=== PATIENT | female | born 1970 | race Caucasian/White ===

== ENCOUNTER 2016-07-03 13:32 | Inpatient (IN) | payer BC ==
--- NOTE | ~2016-07-03 | DS ---
Discharge Summary [id number] [place]. [address] NAME: LEANN VARELA : 68 STATUS : DIS IN PAT#: [id number] AGE: 45 ADM/REG DATE : 07/03/16 MR#: [id number] REPORT SERV DATE: 07/07/16 DICTATED BY: Raman TEJEDA DATE: 07/06/16 REPORT STATUS : Draft TRANSCRIBED BY: MODL DATE: 07/06/16 ADMISSION DATE: 07/03/2016 DISCHARGE DATE: 07/06/2016 ADMISSION DIAGNOSIS: Left distal ureteral stone with urinary tract infection. DISCHARGE DIAGNOSIS: Left distal ureteral stone with urinary tract infection. PROCEDURES DURING ADMISSION: 07/03/2016, cysto, left retrograde double-J stent placement by Dr. Coe. COMPLICATIONS: None. BRIEF HISTORY: Ms. Varela is a 45-year-old white female with a history of recurrent stone disease, came to the ER on 07/03/2016 with fever, pain, and ureteral obstruction due to stone. She had a stent placed urgently and cultures were obtained. HOSPITAL COURSE AND TREATMENT: The patient was admitted. She still had fever overnight, felt poorly on 07/04/2016. Her white count was 16,000. I saw her for the first time on 07/05/2016. She was feeling poorly. T-max 99. White count decreased to 15.4, creatinine was 0.8. Urine culture was growing greater than 100 colonies of gram-positive cocci, and I switched her from Rocephin to vancomycin. Blood cultures were no growth at 24 hours. On 07/06/2016, she was feeling marginally better. She was afebrile with good urine output. Her white count was normalized at 9000. Her urine culture was positive for Enterococcus avium, group D, sensitive to vancomycin as well as oral antibiotics including ampicillin and levofloxacin. I decided to discharge Ms. Varela on sensitivity-directed antibiotics with the following instructions. DISCHARGE INSTRUCTIONS: 1. Home today. 2. Amoxicillin 500 mg p.o. t.i.d. x10 days. 3. Percocet 5/325 one to two p.o. q.4 hours p.r.n. pain, #20. 4. Pyridium 200 mg p.o. t.i.d. x5 days, 3 refills. 5. We will schedule delayed ureteroscopy in the next week or two with stent exchange. She has done this before and understands that. ALLI/ALLISON Raman Tejeda M.D. / [id number] CC: Discharge Summary [address] [place]. [address] NAME: LEANN VARELA : 68 STATUS : DIS IN PAT#: [id number] AGE: 45 ADM/REG DATE : 07/03/16 MR#: [id number] REPORT SERV DATE: 07/07/16 DICTATED BY: Raman TEJEDA DATE: 07/06/16 REPORT STATUS : Draft TRANSCRIBED BY: ALLISON DATE: 07/06/16 Rhonda Barron LYDIA B
--- NOTE | ~2016-07-03 | OP ---
Record Of [facility] [address] [place]. [address] NAME: LEANN VARELA : 68 STATUS : ADM Muna PAT#: [id number] AGE: 45 ADM/REG DATE : 07/03/16 MR#: [id number] REPORT SERV DATE: 07/03/16 DICTATED BY: CARLTON KEITA DATE: 07/03/16 REPORT STATUS : Draft TRANSCRIBED BY: MODL DATE: 07/03/16 DATE OF PROCEDURE: 07/03/2016 PREPROCEDURE DIAGNOSES: 1. 4 mm left ureteral calculus. 2. urinary tract infection. 3. Fever. 4. Early sepsis of urinary origin. POSTPROCEDURE DIAGNOSES: 1. 4 mm left ureteral calculus. 2. Urinary tract infection. 3. Fever. 4. Early sepsis of urinary origin. PROCEDURE: Cystoscopy, left retrograde pyelogram, stone manipulation, 6-Maldivian x 26 cm left ureteral stent placement. SURGEON: Carlton Keita M.D. CLINICAL TRIAL EDUCATOR: Sergio. ANESTHESIA: General. ESTIMATED BLOOD LOSS: Trace. FLUIDS: 500 mL crystalloid. COMPLICATION: None. HISTORY: Ms Varela is a 45-year-old, white female, who presented to the emergency department today with an early septic left ureteral calculus. I recommended emergent left ureteral stent decompression. I highlighted the risks, benefits, alternatives, imponderables, expected outcomes, and potential complications inherent to this decision. Risks include, but not limited to bleeding, infection, overwhelming sepsis, ICU stay, need for further urologic procedures, anesthesia complications, and so forth. I highlighted that I would not make an attempt to remove the stone today due to her infected status. I answered all of her questions, I believe, to her satisfaction. Subsequently, she requested the procedure and provided her informed written consent. PROCEDURE IN DETAIL: On 07/03/2016, the patient was brought to the cystoscopy suite. She was placed supine on the cystoscopy table. After the Anesthesia Team connected heart and lung monitors and established general anesthesia, the patient was repositioned in the lithotomy position. All pressure points were carefully padded. Genitalia and perineum were prepped and draped into a sterile field with Hibiclens. A time-out was called. The proper patient and procedure were confirmed. Rocephin was administered in the emergency department Record Of [facility] [address] [place]. [address] NAME: LEANN VARELA : 68 STATUS : ADM Muna PAT#: [id number] AGE: 45 ADM/REG DATE : 07/03/16 MR#: [id number] REPORT SERV DATE: 07/03/16 DICTATED BY: CARLTON KEITA DATE: 07/03/16 REPORT STATUS : Draft TRANSCRIBED BY: MODL DATE: 07/03/16 prior the case. At this time, I gently inserted a 20-Maldivian rigid cystoscope with 30-degree lens in the bladder. Surveillance was performed. There were no stones, masses, or foreign bodies visualized. Ureteral orifices were located bilaterally in normal anatomic location. The left ureteral orifice was intubated with 5-Maldivian Pollack catheter, and a left retrograde pyelogram was performed with a 50:50 mixture of sterile water and Omnipaque. This showed a small filling defect at the level of the left acetabulum consistent with the aforementioned stone. She had a moderate degree of proximal hydroureteronephrosis. I advanced a 0.035 inch guidewire through the Pollack catheter and ended up manipulating the stone somewhat cephalad. The guidewire found its way in the left upper pole. I removed the Pollack catheter. Subsequently, I threaded a 6-Maldivian x 26 cm Percuflex Plus stent over the guidewire. The proximal curl was confirmed in left renal pelvis. The string was cut from the stent. The guidewire was removed. The distal curl was confirmed in the bladder. The stent drained nicely. The bladder was drained. The instruments were removed. The patient was awakened, extubated, and transferred to recovery area in stable condition. There were no complications. RAC/MODL Carlton Keita M.D. / [id number] CC: Rhonda Barron LYDIA B J. Patrick Dilworth, M.D.
--- NOTE | ~2016-07-03 | HP ---
History And Physical [id number] [place]. [address] NAME: LEANN VARELA : 68 STATUS : ADM Muna PAT#: [id number] AGE: 45 ADM/REG DATE : 07/03/16 MR#: [id number] REPORT SERV DATE: 07/03/16 DICTATED BY: CARLTON KEITA DATE: 07/03/16 REPORT STATUS : Draft TRANSCRIBED BY: MODL DATE: 07/03/16 DATE OF ADMISSION: 07/03/2016 REASON FOR ADMISSION: Possible septic left ureteral calculus. HISTORY OF PRESENT ILLNESS: Ms. Varela is a 45-year-old white female with a lengthy past medical history of recurrent nephrolithiasis, who presented to the [facility] Emergency Department today with a 24-hour history of left flank pain radiating into her groin along with nausea, vomiting, shaking, chills, and fever. She had a documented temperature of 100.9 degrees Fahrenheit while at home. In the emergency department, she had a thorough investigation. A CT stone protocol revealed a 4 mm left pelvic ureteral calculus with associated moderate to severe left hydroureteronephrosis. Additionally, she had possible early sepsis with a pulse of 117, temperature of 99 degrees Fahrenheit, a white blood cell count of 16,600, and infected appearing urine. Due to all of this, I recommended an emergent trip to the operating room for left ureteral stent decompression followed by hospital admission for fluid resuscitation, antibiotics, pain control, labs, vitals, etc. PAST MEDICAL HISTORY: Hypertension, kidney stones, depression, anxiety, type 2 diabetes. PAST SURGICAL HISTORY: , laparoscopic cholecystectomy, liver resection for benign disease, lithotripsy, ureteroscopy. SOCIAL HISTORY: , lives with her . Does not smoke, drink, or use illicit drugs. FAMILY HISTORY: Positive for diabetes, coronary artery disease, and hypertension. HOME MEDICATIONS: Xanax, vitamin B12, vitamin D, Prozac, Neurontin, Amaryl, Motrin, Hyzaar, Mobic, Glucophage, Zofran, K-Ember, Requip, Mccreary nasal spray, Ambien. ALLERGIES: DEMEROL. REVIEW OF SYSTEMS: Thorough 13-point review of systems was performed by me and I have noted it to be positive in the history of present illness or past medical history, or negative. PHYSICAL EXAMINATION: GENERAL: Well-appearing white female with complaining of mild pain. VITAL SIGNS: Temperature 99, pulse 117, respiration 14, blood pressure 166/87. HEENT: Normocephalic, atraumatic. Eyes are anicteric. Nares are patent. Oropharynx is clear. NECK: Supple. HEART: Tachycardic. ABDOMEN: Mild left CVA tenderness. No involuntary guarding or rebound. INTEGUMENT: Warm. MUSCULOSKELETAL: Moves all extremities well. [address] And Physical [address] [place] [address] NAME: LEANN VARELA : 68 STATUS : ADM Muna PAT#: [id number] AGE: 45 ADM/REG DATE : 07/03/16 MR#: [id number] REPORT SERV DATE: 07/03/16 DICTATED BY: CARLTON KEITA DATE: 07/03/16 REPORT STATUS : Draft TRANSCRIBED BY: ALLISON DATE: 07/03/16 NEUROLOGIC: No focal deficits. PSYCHIATRIC: Pleasant, appropriate. LABS: White blood cell count 16,600, hematocrit 42.1. Creatinine 0.98. Urinalysis: Large leukocyte esterase, negative nitrite, 39 red blood cells, 47 white blood cells, few bacteria. IMAGING: I personally reviewed her CAT scan, which revealed an obstructing 4 mm left-sided ureteral stone with hydroureteronephrosis. ASSESSMENT: 1. Obstructing left ureteral calculus. 2. Urinary tract infection. 3. Fever. 4. Possible early sepsis of urinary origin. PLAN: I discussed the situation with the patient and her with nursing staff present. I discussed that I believe that she needed an emergent trip to the operating room for left ureteral stent decompression. If I am unable to place a stent, she will need left percutaneous nephrostomy drainage. I highlighted that I would not make an attempt to remove her stone today due to her potentially infected status. After the operating room, plans will be to admit her to the floor for fluid resuscitation, IV pain control, serial labs with vital signs, etc. I will also start her on a sliding scale insulin protocol. I answered all questions I believe to her satisfaction. Subsequently, she requested the plan and provided her informed consent. DIAN/MALAL Carlton Keita M.D. / [id number] CC: Raman Rudd M.D.
[2016-07-03 12:56] LABS: BASOPHILS 0.1 %; BASOPHILS ABSOLUTE 0.02 10/3/uL (0.0-0.16); EOSINOPHILS 0.2 %; EOSINOPHILS ABSOLUTE 0.04 10/3/uL (0.0-0.53); ER CBC TAT 0 Hrs 08 Mins; HEMATOCRIT 42.1 % (36.0-48.0); HEMOGLOBIN 14.9 g/dL (12.0-16.0); IMMATURE GRANULOCYTES 0.4 %; IMMATURE GRANULOCYTES ABSOLUTE 0.06 10/3/uL (0.0-0.11); LYMPHOCYTES 7.5 %; LYMPHOCYTES ABSOLUTE 1.24 10/3/uL (0.67-4.30); MANUAL DIFF NO %; MEAN CORPUS HGB CONC 35.4 g/dL (32.0-36.0); MEAN CORPUSCULAR HEMOGLOB 31.8 pg (26.0-34.0); MEAN CORPUSCULAR VOLUME 89.8 fL (80-100); MONOCYTES 5.4 %; NEUTROPHILS 86.4 %; NEUTROPHILS ABSOLUTE 14.31 10/3/uL (2.02-8.40); PLATELET COUNT 267 10/3/uL (150-400); RBC DISTRIBUTION WIDTH 15.1 % (12.0-16.0); RED CELL COUNT 4.69 10/6/uL (4.0-5.6); WHITE BLOOD CELLS 16.6 10/3/uL (4.5-10.5)
[2016-07-03 13:01] LABS: ASCORBIC ACID (UR NOT ORDER) NEG (NEG); BILIRUBIN, URINE NEGATIVE (NEG); ER URINALYSIS TAT 0 Hrs 13 Mins; KETONE, URINE TRACE MG/DL (NEG); LEUKOCYTE ESTERASE(NOT OR LARGE (NEG); NITRITE (URINE) NEG (NEG); WBC (NOT ORDERED) (RFLEX) 47 (0-5)
[2016-07-03 13:03] LABS: INTERNATIONAL NORMAL RATI 1.1 UNITS (-); PROTIME (NOT ORD) 13.8 SEC (12.0-14.5)
[2016-07-03 13:12] LABS: A/G RATIO 0.8 (0.7-1.9); ALBUMIN 3.6 G/DL (3.5-5.0); ALKALINE PHOSPHATASE 71 U/L (45-117); BUN (BLOOD UREA NITROGEN) 11 MG/DL (6-23); CALCIUM, SERUM 9.3 MG/DL (8.5-10.4); CHLORIDE, SERUM 96 MMOL/L (96-112); CO2 (CARBON DIOXIDE) 27 MMOL/L (24-34); CREATININE 0.98 MG/DL (0.55-1.02); GFR AFRICAN AMERICAN 80 ML/MIN (>=60); GFR NON AFRICAN AMERICAN 69 ML/MIN (>=60); GLOBULIN 4.6 G/DL (2.5-4.1); GLUCOSE, SERUM 180 MG/DL (60-99); POTASSIUM, SERUM 3.3 MMOL/L (3.5-5.3); SGPT(ALT) 22 U/L (5-65); SODIUM, SERUM 137 MMOL/L (135-148); TOTAL BILIRUBIN 0.5 MG/DL (0-1.2); TOTAL PROTEIN 8.2 G/DL (6.0-8.5)
[2016-07-03 13:13] LABS: SGOT(AST) 19 U/L (5-40)
[2016-07-03 13:15] LABS: LACTATE 3.6 MMOL/L (0.3-2.4)
[~2016-07-03 13:32] MED LIST: ACET500CAP PO; AFRIN15 NAS; ALEVE220 MG PO; AMARYL2 PO; AMB10 PO; AMB5 PO; AMOXIL500C PO; AVALIDE1 TA1 PO; BACDS PO; COZ25 PO; EFFEXOR XR150 MG PO; ESTRADIOL 0.1 MG TOP; FIBERCON PO; GLUCPH8 PO; HYZAAR 100/25 T1 TAB PO; I10 PO; KLOR-CON M1010 MEQ PO; KLOR-CON M2020 MEQ PO; LEVAQUIN5T PO; LEVAQUIN750 MG PO; LEXAPRO10 PO; LEXAPRO20 PO; LIPITOR10 PO; MAGOX4 PO; MOTRIN IB200 MG PO; NEUR100 PO; PCET PO; POTASSIUM RX PO; PROBIOTIC; PYR200 PO; QUESTRAN4 GM PO; REQUIP2 PO; VICTOZA18 MG/3 ML SC; VIIBRYD10 MG PO; VIIBRYD20 MG PO; VITAMIN B PO; ZOFRAN ODT4 MG PO
[2016-07-03 13:47] LABS: PROCALCITONIN 0.19 ng/mL (<0.5)
[2016-07-03] MEDS ORDERED: NEUR100 PO (13:50)
[2016-07-03] MEDS ORDERED: REQUIP2 PO (13:50)
[2016-07-03] MEDS ORDERED: PROZAC PO (13:51)
[2016-07-03] MEDS ORDERED: AMARYL2 PO (13:51)
[2016-07-03] MEDS ORDERED: AMB5 PO (13:51)
[2016-07-03] MEDS ORDERED: GLUCPH8 PO (13:52)
[2016-07-03] MEDS ORDERED: HYZAAR 100/25 T1 TAB PO (13:52)
[2016-07-03] MEDS ORDERED: MOBIC15 MG PO (13:52)
[2016-07-03] MEDS ORDERED: KLOR-CON M2020 MEQ PO (13:53)
[2016-07-03] MEDS ORDERED: VITD PO (13:53)
[2016-07-03] MEDS ORDERED: X5 PO (13:54)
[2016-07-03] MEDS ORDERED: ZOFRAN ODT4 MG PO (13:55)
[2016-07-03] MEDS ORDERED: B12100T PO (13:56)
[2016-07-03] MEDS ORDERED: IBU800 PO (13:57)
[2016-07-03] MEDS ORDERED: OCEAN NAS (13:58)
[2016-07-04 06:34] LABS: BUN (BLOOD UREA NITROGEN) 13 MG/DL (6-23); CALCIUM, SERUM 7.3 MG/DL (8.5-10.4); CHLORIDE, SERUM 99 MMOL/L (96-112); CO2 (CARBON DIOXIDE) 26 MMOL/L (24-34); CREATININE 1.08 MG/DL (0.55-1.02); GFR AFRICAN AMERICAN 71 ML/MIN (>=60); GFR NON AFRICAN AMERICAN 62 ML/MIN (>=60); GLUCOSE, SERUM 216 MG/DL (60-99); POTASSIUM, SERUM 3.8 MMOL/L (3.5-5.3); SODIUM, SERUM 136 MMOL/L (135-148)
[2016-07-04 08:28] LABS: BASOPHILS 0.1 %; BASOPHILS ABSOLUTE 0.02 10/3/uL (0.0-0.16); EOSINOPHILS 0.1 %; EOSINOPHILS ABSOLUTE 0.02 10/3/uL (0.0-0.53); HEMATOCRIT 32.2 % (36.0-48.0); HEMOGLOBIN 11.1 g/dL (12.0-16.0); IMMATURE GRANULOCYTES 2.7 %; IMMATURE GRANULOCYTES ABSOLUTE 0.47 10/3/uL (0.0-0.11); LYMPHOCYTES 6.4 %; LYMPHOCYTES ABSOLUTE 1.12 10/3/uL (0.67-4.30); MANUAL DIFF NO %; MEAN CORPUS HGB CONC 34.5 g/dL (32.0-36.0); MEAN CORPUSCULAR HEMOGLOB 31.3 pg (26.0-34.0); MEAN CORPUSCULAR VOLUME 90.7 fL (80-100); MEAN PLATELET VOLUME 8.5 fL (9.2-13.0); MONOCYTES 9.3 %; MONOCYTES ABSOLUTE 1.63 10/3/uL (0.21-1.20); NEUTROPHILS 81.4 %; NEUTROPHILS ABSOLUTE 14.32 10/3/uL (2.02-8.40); PLATELET COUNT 173 10/3/uL (150-400); RBC DISTRIBUTION WIDTH 15.4 % (12.0-16.0); RED CELL COUNT 3.55 10/6/uL (4.0-5.6); WHITE BLOOD CELLS 17.6 10/3/uL (4.5-10.5)
[2016-07-05 06:41] LABS: BASOPHILS 0.1 %; BASOPHILS ABSOLUTE 0.02 10/3/uL (0.0-0.16); EOSINOPHILS 1.2 %; EOSINOPHILS ABSOLUTE 0.19 10/3/uL (0.0-0.53); HEMATOCRIT 33.4 % (36.0-48.0); HEMOGLOBIN 11.3 g/dL (12.0-16.0); IMMATURE GRANULOCYTES 0.6 %; IMMATURE GRANULOCYTES ABSOLUTE 0.09 10/3/uL (0.0-0.11); LYMPHOCYTES 7.6 %; LYMPHOCYTES ABSOLUTE 1.17 10/3/uL (0.67-4.30); MEAN CORPUS HGB CONC 33.8 g/dL (32.0-36.0); MEAN CORPUSCULAR HEMOGLOB 31.5 pg (26.0-34.0); MEAN PLATELET VOLUME 8.8 fL (9.2-13.0); MONOCYTES 7.4 %; MONOCYTES ABSOLUTE 1.14 10/3/uL (0.21-1.20); NEUTROPHILS 83.1 %; NEUTROPHILS ABSOLUTE 12.75 10/3/uL (2.02-8.40); PLATELET COUNT 207 10/3/uL (150-400); RBC DISTRIBUTION WIDTH 15.4 % (12.0-16.0); RED CELL COUNT 3.59 10/6/uL (4.0-5.6); WHITE BLOOD CELLS 15.4 10/3/uL (4.5-10.5)
[2016-07-05 06:44] LABS: MANUAL DIFF NO %
[2016-07-05 06:52] LABS: BUN (BLOOD UREA NITROGEN) 13 MG/DL (6-23); CALCIUM, SERUM 7.6 MG/DL (8.5-10.4); CHLORIDE, SERUM 101 MMOL/L (96-112); CO2 (CARBON DIOXIDE) 24 MMOL/L (24-34); CREATININE 0.82 MG/DL (0.55-1.02); GFR AFRICAN AMERICAN 99 ML/MIN (>=60); GFR NON AFRICAN AMERICAN 86 ML/MIN (>=60); GLUCOSE, SERUM 193 MG/DL (60-99); POTASSIUM, SERUM 3.4 MMOL/L (3.5-5.3); SODIUM, SERUM 137 MMOL/L (135-148)
[2016-07-06 06:56] LABS: BASOPHILS 0.1 %; BASOPHILS ABSOLUTE 0.01 10/3/uL (0.0-0.16); EOSINOPHILS 2.3 %; EOSINOPHILS ABSOLUTE 0.21 10/3/uL (0.0-0.53); HEMATOCRIT 31.1 % (36.0-48.0); HEMOGLOBIN 10.7 g/dL (12.0-16.0); IMMATURE GRANULOCYTES 0.7 %; IMMATURE GRANULOCYTES ABSOLUTE 0.06 10/3/uL (0.0-0.11); LYMPHOCYTES 12.1 %; LYMPHOCYTES ABSOLUTE 1.08 10/3/uL (0.67-4.30); MANUAL DIFF NO %; MEAN CORPUS HGB CONC 34.4 g/dL (32.0-36.0); MEAN CORPUSCULAR HEMOGLOB 31.5 pg (26.0-34.0); MEAN CORPUSCULAR VOLUME 91.5 fL (80-100); MEAN PLATELET VOLUME 8.9 fL (9.2-13.0); MONOCYTES 9.4 %; MONOCYTES ABSOLUTE 0.84 10/3/uL (0.21-1.20); NEUTROPHILS 75.4 %; NEUTROPHILS ABSOLUTE 6.76 10/3/uL (2.02-8.40); PLATELET COUNT 198 10/3/uL (150-400)
[2016-07-06] MEDS ORDERED: AMOXIL500C PO (14:16)
[2016-07-06] MEDS ORDERED: PCET PO (14:17)
[2016-07-06] MEDS ORDERED: PYR200 PO (14:17)
== END 2016-07-06 15:07 | disposition home or self-care (01) | DRG 872 ==
LOC: ER 13:32 → 5SO 18:00
PROVIDERS: Physician Assistant Medical; Urology
PROC: 0T778DZ Dilation of Left Ureter with Intraluminal Device, Via Natural or Artificial Opening Endoscopic (ICD-10-PCS; 2016-07-03)
PROC: BT1F1ZZ Fluoroscopy of Left Kidney, Ureter and Bladder using Low Osmolar Contrast (ICD-10-PCS; principal; 2016-07-03 17:30)
DX: A41.9 Sepsis, unspecified organism (principal); I10 Essential (primary) hypertension; N39.0 Urinary tract infection, site not specified; N13.2 Hydronephrosis with renal and ureteral calculous obstruction; E11.9 Type 2 diabetes mellitus without complications; Z79.84 Long term (current) use of oral hypoglycemic drugs; F32.9 Major depressive disorder, single episode, unspecified; F41.9 Anxiety disorder, unspecified; Z90.49 Acquired absence of other specified parts of digestive tract; Z98.890 Other specified postprocedural states; Z82.49 Family history of ischemic heart disease and other diseases of the circulatory system; Z79.899 Other long term (current) drug therapy
CPT/HCPCS: 74176; 74420; 80048; 80053; 81001; 82962; 83605; 83690; 84145; 84703; 85025; 85610; 85730; 87040; 87077; 87086; 87186; 93005; 96374; 96375; 99291; A9270-GY; C1758; C2617; J0330; J1170; J2250; J2370; J2405; J2550; J3010; J3370; Q9967

== ENCOUNTER 2016-07-13 12:39 | Day surgery (SDC) | payer BC ==
--- NOTE | ~2016-07-13 | OP ---
Record Of Operation [facility] [address] [place]. [address] NAME: LEANN VARELA : 68 STATUS : [facility]#: [id number] AGE: 45 ADM/REG DATE : 07/13/16 MR#: [id number] REPORT SERV DATE: 07/13/16 DICTATED BY: Raman TEJEDA DATE: 07/13/16 REPORT STATUS : Draft TRANSCRIBED BY: MODL DATE: 07/13/16 DATE OF PROCEDURE: 07/13/2016 PREOPERATIVE DIAGNOSIS: Left ureteral stone, status post recent urinary tract infection with indwelling double-J stent. POSTOPERATIVE DIAGNOSIS: Left ureteral stone, status post recent urinary tract infection with indwelling double-J stent. PROCEDURES: Cystoscopy, removal of left double-J stent, left retrograde pyelography, ureteroscopy, basket stone extraction, double-J stent placement. SURGEON: Raman Tejeda M.D. ANESTHESIA: General. COMPLICATIONS: None. DRAINS: A 7-Lithuanian x 24 cm Contour double-J stent (on a string). BRIEF HISTORY: Ms. Varela is a 45-year-old white female, well known to me with history of recurrent stone disease. She came to the ER on 07/03/2016 with fever, pain, and ureteral obstruction due to a stone. She had a stent placed urgently and cultures were obtained. She was admitted for several days and her culture ultimately showed Enterococcus avium, group D, sensitive to the vancomycin that she has been switched to, as well as oral antibiotics including ampicillin and levofloxacin. I discharged her on 07/06/2016 on amoxicillin 500 mg p.o. b.i.d. x10 days with plans for the above delayed procedure. The risks of bleeding, infection, anesthesia, injury to adjacent organs, inability to access stone, need for continued stenting, etc, were all discussed. There were no unanswered questions. DESCRIPTION OF PROCEDURE: Under excellent general anesthesia, the patient was prepped and draped in the standard lithotomy position. Cystoscopy was performed with a 30-degree lens, revealed a stent emanating from the left orifice. It was grasped with a flexible grasper and removed without difficulty. Her ureters appeared dilated. I inserted an angled glidewire through a 5-Lithuanian open-ended catheter and then alongside the wire, I inserted a short rigid ureteroscope. I encountered the stone in the upper aspect of the distal ureter. It appeared partially impacted in the lateral wall, but I was able to get a basket around it with moderate difficulty bringing to the distal ureter and removed it without difficulty. I dilutely opacified the collecting system after reinserting the ureteroscope and then retrofitted the wire and the cystoscope. I placed a 7-Lithuanian x 24 cm Contour double-J stent and left the string attached. I planned to discharge Ms. Varela as an outpatient with the following instructions. DISCHARGE INSTRUCTIONS: Record Of Operation [facility] [address] [facility] [place]. [address] NAME: LEANN VARELA : 68 STATUS : [facility]#: [id number] AGE: 45 ADM/REG DATE : 07/13/16 MR#: [id number] REPORT SERV DATE: 07/13/16 DICTATED BY: Raman TEJEDA DATE: 07/13/16 REPORT STATUS : Draft TRANSCRIBED BY: ALLISON DATE: 07/13/16 1. Home today. 2. Percocet 5/325 one to two p.o. q.4 hours p.r.n. pain, #25. 3. Finish antibiotics as previously prescribed. 4. Okay to remove stent on 07/16/2016 and call me with any problems. She should keep followup or otherwise follow up in three months to review stone analysis if desired. ALLI/ALLISON Raman Tejeda M.D. / [id number] CC: SUNITA HOBBS M.D.
[~2016-07-13 12:39] MED LIST changes: +B12100T PO; +IBU800 PO; +MOBIC15 MG PO; +OCEAN NAS; +PROZAC PO; +VITD PO; +X5 PO
[2016-07-19 16:53] LABS: STONE COMPOSITION TWO DNR (())
== END 2016-07-13 16:58 | disposition home or self-care (01) ==
LOC: SDC 12:39
PROC: 0T778DZ Dilation of Left Ureter with Intraluminal Device, Via Natural or Artificial Opening Endoscopic (ICD-10-PCS; principal; 2016-07-13 14:30)
DX: N20.1 Calculus of ureter (principal); I10 Essential (primary) hypertension; E11.9 Type 2 diabetes mellitus without complications; F41.9 Anxiety disorder, unspecified; Z87.442 Personal history of urinary calculi; Z79.899 Other long term (current) drug therapy; Z98.890 Other specified postprocedural states; Z87.440 Personal history of urinary (tract) infections
CPT/HCPCS: 74420; 82365; 82962; 84703; A9270-GY; C1758; C1769; C1874; J1170; J2250; J2370; J2405; J3010; Q9967